=== PATIENT | male | born 1980 | race African-American/Black ===

== ENCOUNTER 2024-10-03 06:00 | Day surgery (SDC) | payer MEDICAID, SELFPAY ==
[~2024-10-03] VITALS: Ht 188 cm; Wt 100.2 kg
[~2024-10-03 06:00] MED LIST: ACET-907 PO; VENTAER INH
[2024-10-03] MEDS ORDERED: ONDANSETRON 4MG 2ML VIAL As Ordered ONE (06:59)
[2024-10-03] MEDS ORDERED: LIDOCAINE 2% 100 MG/5 ML SDV (FOR ANES.) As Ordered ONE (06:59)
[2024-10-03] MEDS ORDERED: KETOROLAC 30 MG/ML 1 ML VIAL As Ordered ONE (06:59)
[2024-10-03] MEDS ORDERED: MIDAZOLAM INJ 2 MG/2 ML VIAL As Ordered ONE (07:05)
[2024-10-03] MEDS: ceFAZolin SOD 2 GM IV ONCE IV ONE (07:42)
[2024-10-03] MEDS: LIDOCAINE 2% MDV 20 ML VIAL As Ordered ONE (07:42)
[2024-10-03] MEDS ORDERED: ACETAMINOPHEN 1000MG/100ML IV BAG As Ordered ONE (07:44)
[2024-10-03] MEDS: dexAMETHasone 4 MG/ML 1 ML VIAL As Ordered ONE (10:25)
[2024-10-03] MEDS ORDERED: LR 1,000 ML IV SCH (10:45)
[2024-10-03] MEDS ORDERED: HYDROMORPHONE HCL 0.5 MG/0.5 ML SYRINGE IV PRN (10:45)
[2024-10-03] MEDS ORDERED: ONDANSETRON 4MG 2ML VIAL IV PRN (10:45)
[2024-10-03 13:00] VITALS: BP 127/68; TEMP 97.9; O2SAT 97
== END 2024-10-03 13:05 | disposition home or self-care (01) ==
LOC: M SDC 06:00
PROVIDERS: ATTEND Podiatrist
DX: M20.11 Hallux valgus (acquired), right foot (principal); M20.41 Other hammer toe(s) (acquired), right foot; F32.A Depression, unspecified; J45.909 Unspecified asthma, uncomplicated; Z87.891 Personal history of nicotine dependence; Z79.51 Long term (current) use of inhaled steroids
CPT/HCPCS: 28270; 28285; 28299; 28308; 73620; 76000; 88300; 93005; C1713; J0131; J0665; J0690; J1100; J1885; J2250; J2405; J3010

== ENCOUNTER 2024-10-17 18:20 | Emergency (ER) | payer MEDICAID, OTHER ==
[~2024-10-17] VITALS: Ht 188 cm; Wt 99.0 kg
[2024-10-17 19:13] LABS: BASO # 0.1 10^3/uL (0.0-0.2); BASO % 1.1 % (0.0-1.0); EOS # 0.4 10^3/uL (0.0-0.5); EOS % 7.5 % (0.0-3.0); LYMPH # 2.1 10^3/uL (1.5-5.0); LYMPH % 38.7 % (24.0-44.0); MONO # 0.5 10^3/uL (0.0-0.8); MONO % 8.8 % (2.0-8.0); NEUTROPHILS # 2.4 10^3/uL (1.5-8.5); NEUTROPHILS % 43.7 % (36.0-66.0); PLATELET COUNT, AUTOMATED 251 10^3/uL (150-450)
[2024-10-17 19:38] LABS: ERYTHROCYTE SEDIMENTATION RATE 11 mm/hr (0-15)
[2024-10-17 19:39] LABS: CALCIUM LEVEL 9.4 MG/DL (8.5-10.1); CARBON DIOXIDE LEVEL 25 MMOL/L (20-31); CHLORIDE LEVEL 104 MMOL/L (98-107); CREATININE FOR GFR 1.15 MG/DL (0.70-1.30); GLOMERULAR FILTRATION RATE 80.0 (>60); POTASSIUM SERUM 4.2 MMOL/L (3.5-5.1); SODIUM LEVEL 140 MMOL/L (136-145)
[2024-10-17 19:45] LABS: C REACTIVE PROTEIN QUANTITATIV < 0.50 MG/DL (<1.0)
[2024-10-17] MEDS ORDERED: ISOVUE-370 76% 100 ML VIAL As Ordered ONE (19:51)
[2024-10-17] MEDS ORDERED: AMOX875T2 PO (21:41)
[2024-10-17 21:50] VITALS: BP 132/72; TEMP 98; O2SAT 89
[2024-10-17] MEDS: AUGMENTIN 875 MG TAB PO ONE (21:54)
== END 2024-10-17 22:15 | disposition home or self-care (01) ==
LOC: M ED 18:20
DX: L76.82 Other postprocedural complications of skin and subcutaneous tissue (principal); F32.A Depression, unspecified
CPT/HCPCS: 73701; 80048; 85025; 85652; 86140; 87040; 87077; 87154; 87186; 99284; Q9967